=== PATIENT | male | born 1985 | race Caucasian/White ===

== ENCOUNTER 2020-06-04 18:24 | Emergency (ER) | payer MEDICARE, OTHER ==
[~2020-06-04 18:24] MED LIST: CYCLOBENZAPRINE10 MG PO; KEFLEX500 MG PO; LEVETIRACE100 MG/1 M PO; NAPROXEN500 MG PO
[2020-06-04] MEDS ORDERED: MEDROL 4MG DOSEP4 MG PO (20:29)
== END 2020-06-04 20:43 | disposition home or self-care (01) ==
LOC: FER 18:24
DX: S16.1XXA Strain of muscle, fascia and tendon at neck level, initial encounter (principal); X50.0XXA Overexertion from strenuous movement or load, initial encounter
CPT/HCPCS: 72125; J1100